=== PATIENT | male | born 1940 | race Caucasian/White ===

== ENCOUNTER → 2023-09-03 10:47 | Outpatient (CLI) | payer MEDICARE, OTHER, SELFPAY ==
--- NOTE | 2023-09-03 10:51 | DI.RAD.S_ITS ---
PROCEDURE: FL BARIUM SWALLOW W SPEECH INDICATIONS: Gastro-esophageal reflux disease COMPARISON: None. TECHNIQUE: Examination was conducted in conjunction with speech pathology per standard protocol. In the lateral projection, filming was performed of the patient swallowing. AP projection filming may also be performed with patient swallowing. COMPARISON: FINDINGS: Function: The oral preparatory phase appears normal, with proper containment. The subsequent oral propulsive phase, pharyngeal phase, and esophageal phase of swallowing also appear normal with all proffered substances. No aspiration. Mild penetration. No pathologic vallecular pooling. Mild reflux. Morphology: No cricopharyngeal bar is identified. No cervical esophageal webs. No Zenker's diverticulum. No strictures. IMPRESSION: Mild reflux. Dictated by: Bobbi Castellon M.D. on 09/03/2023 at 16:14 Approved by: Bobbi Castellon M.D. on 09/03/2023 at 16:14
--- NOTE | 2023-09-03 15:24 | ST.SWALLOW ---
Visit Care Team Role Provider Type Zachary Hoffman MD Primary Care Provider Non-Staff Specialty: Medical Address: [address] [place] [address], [place], [address] Email: Todd Winchester MD Attending Provider Physician Referring Provider Specialty: Ear, Nose, Throat Address: [address] [place] [address], [id number] Email: [email or web address] Modified Barium Swallow Study CASSANDRA DEVELOPER Modified Barium Swallow Study Start: 09/03/23 14:33 Freq: Status: Active Protocol: Document 09/03/23 14:34 LNK (Rec: 09/03/23 15:23 [id number]) Modified Barium Swallow Study Total Time Visit Start Time 11:00 Visit Stop Time 11:45 Total Visit Minutes 45 Referral Referring Physician LIAN Valencia Reason for Referral recurrent cough; dysphagia Setting Setting Outpatient Care Patient Information Identification Type Name,Date of Patient History Pt was seen for a Modified Barium Swallow Study at the referral of LIAN Valencia. According to the pt he has a recurrent cough due to severe PND, allergies and GERD. Pt reported he is taking several medications in effort to control his allergies/ PND/ coughing. Pt described his cough as being spasmatic and coughing hard enough that he becomes short of breath. Dr. Winchester's examination indicated copious thick mucuc around the hypopharyngeal inlet, mild to moderate interarytenoid space. 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 He denied choking during meals Subjective Observations Pt was seated in the fluoroscopy chair with instructions and procedures described for her. He indicated that he understood and agreed to continue. Patient Positioning Position View A/P Imaging Lateral View Textures Administered Trials Presented Thin Liquid via Spoon (IDDSI 0 ),Thin Liquid via Cup (IDDSI 0 ),Extremely Thick Liquid via Spoon (IDDSI 4),Regular (IDDSI 7) Barium Tablet Yes The IDDSI Framework Protocol: IDDSI.1 Oral Impairment Source: The Modified Barium Swallow Impairment Profile (MBSImP??) Lip Closure No labial escape Tongue Control During Bolus Hold Cohesive bolus between tongue to palatal seal Bolus Preparation/Mastication Timely & efficient chewing & mashing Bolus Transport/Lingual Motion Brisk tongue motion Oral Residue Complete oral clearance Initiation of Pharyngeal Swallow Bolus head at posterior angle of ramus (first hyoid excursion) Additional Oral Impairment Observations OME noted that the pt was unable to puff both cheeks ( laft cheek remained flat). Additionally, the pt's tongue deviated to the right upon protrusion with decreased ROM to the left. Velar structures appeared to be symmetric in shape and movement. At rest, there was a slight ffacial droop on the left side. Pt's DKS were observed to be WFL, with a slight reduction in speed of movement. Speech was intelligible at 100%. Dentition was natural and in good hygiene. Mastication was adequate with rotary chew pattern. Bolus formation, control and AP transition were observed to be WFL. Pharyngeal Impairment Source: The Modified Barium Swallow Impairment Profile (MBSImP??) Soft Palate Elevation No bolus between soft palate & pharyngeal wall Laryngeal Elevation Part.sup.move.thyroid cart/ part.approx.arytenoids to epiglot.petiole Anterior Hyoid Excursion Partial anterior movement Epiglottic Movement Complete inversion Laryngeal Vestibular Closure Complete; no air/contrast in laryngeal vestibule Pharyngeal Stripping Wave Present - complete Pharyngoesophageal Segment Opening Partial distention/partial duration; partial obstruction of flow Tongue Base Retraction No contrast between tongue base & posterior pharyngeal wall Pharyngeal Residue Complete pharyngeal clearance Additional Pharyngeal Impairment Adequate tongue base Observations retraction with mild reduction in hyolaryngeal elevation and movement. Full epiglottic inversion with good seal of the laryngeal vestibule was noted. Flash penetration with consecutive swallows noted x2 (WNL for pt's age). No aspiration or contrast residual observed post swallow trials. Re: the PES: There appeared to be reduction in the extension and duration of the PES opening with the cookie trial, leaving a collection of residue after the swallow. At that point, the pt reported an irritation within his pharynx. Dry swallows were not successful in clearing the residue, requiring a water- wash to clear the residue. A/P View Textures Administered Trials Presented Thin Liquid via Cup (IDDSI 0) The IDDSI Framework Protocol: IDDSI.1 A/P View Observations Pharyngeal Contraction Complete Esophageal Clearance Upright Position Complete clearance; esophageal coating Vocal Fold Function Good Esophageal Function WFL Clinical Impressions Dysphagia Type Esophageal Findings Oropharyngeal swallow phases appeared to be WFL. There appeared to be reduced opening of the PES with the solid/ cookie trial. Recommend referral to GI for further assessment. Patient Appropriate for Therapy No Recommendations Diet Comments No change in diet recommended Aspiration Precautions Recommended Precautions Alternate Liquids/Solids, Frequent Rest Periods Additional Precautions Increase liquids during meal to clear PES of any solid residue Treatment Plan Recommended Referrals GI Consult
== END ==
PROVIDERS: PCP Student in an Organized Health Care Education/Training Program; Referring Provider Otolaryngology; Visit Provider Otolaryngology
DX: R05.3 Chronic cough (principal); K21.9 Gastro-esophageal reflux disease without esophagitis
CPT/HCPCS: 74230; 92611